=== PATIENT | male | born 1955 | race Caucasian/White ===

== ENCOUNTER → 2019-03-03 | Outpatient (REF) | payer OTHER ==
[2019-03-03 12:44] LABS: HEMATOCRIT 35.6 % (42.0-52.0); HEMOGLOBIN 11.6 g/dl (13.5-17.5); MEAN CORPUSCULAR HEMOGLOBIN 29.4 pg (27.0-33.0); MEAN CORPUSCULAR HGB CONC 32.6 g/dl (32.0-36.5); MEAN CORPUSCULAR VOLUME 90.1 fl (80.0-96.0); PLATELET COUNT, AUTOMATED 347 10^3/uL (150-450); RED BLOOD COUNT 3.95 10^6/uL (4.30-6.10); WHITE BLOOD COUNT 10.5 10^3/uL (4.0-10.0)
[2019-03-03 13:15] LABS: CALCIUM LEVEL 8.3 MG/DL (8.8-10.2); CREATININE FOR GFR 1.82 MG/DL (0.70-1.30); POTASSIUM SERUM 4.8 MEQ/L (3.5-5.1)
== END ==
LOC: M SHH 11:24
DX: A41.50 Gram-negative sepsis, unspecified (principal)

== ENCOUNTER → 2019-03-08 | Outpatient (REF) | payer OTHER ==
[2019-03-08 13:38] LABS: CALCIUM LEVEL 8.4 MG/DL (8.8-10.2); CREATININE FOR GFR 1.91 MG/DL (0.70-1.30); GLOMERULAR FILTRATION RATE 37.8 (>49)
[2019-03-08 13:47] LABS: HEMATOCRIT 32.7 % (42.0-52.0); HEMOGLOBIN 10.6 g/dl (13.5-17.5); MEAN CORPUSCULAR HEMOGLOBIN 28.5 pg (27.0-33.0); MEAN CORPUSCULAR HGB CONC 32.4 g/dl (32.0-36.5); MEAN CORPUSCULAR VOLUME 87.9 fl (80.0-96.0); PLATELET COUNT, AUTOMATED 282 10^3/uL (150-450); RED BLOOD COUNT 3.72 10^6/uL (4.30-6.10); WHITE BLOOD COUNT 6.6 10^3/uL (4.0-10.0)
== END ==
LOC: M SHH 12:24
DX: A41.50 Gram-negative sepsis, unspecified (principal)

== ENCOUNTER → 2020-12-06 | Outpatient (CLI) | payer OTHER, MEDICARE ==
[~2020-12-06] MED LIST: FLOM0.4C39 PO; OXYB5TAB10 PO; VALA1TAB5 PO
== END ==
LOC: M LABSMTC 10:30
PROVIDERS: ATTEND Anesthesiology
DX: Z01.812 Encounter for preprocedural laboratory examination (principal); Z20.822 Contact with and (suspected) exposure to COVID-19

== ENCOUNTER 2020-12-11 11:16 | Day surgery (SDC) | payer OTHER, MEDICARE ==
[~2020-12-11] VITALS: Ht 182.9 cm; Wt 81.1 kg
[~2020-12-11 11:16] MED LIST changes: +LIDOCAINE 1% MDV 20ML VIAL SQ PRN; +LR 1,000 ML IV SCH; +ceFAZolin SOD 2 GM in IV 1 EA IV ONE
[2020-12-11] MEDS ORDERED: LIDOCAINE 2% 100MG/5ML SDV (FOR ANES.) As Ordered ONE (14:31)
[2020-12-11] MEDS ORDERED: dexameTHASONE 4 MG/ML 1ML VIAL (J1100 PER 1MG) As Ordered ONE (14:31)
[2020-12-11] MEDS ORDERED: ONDANSETRON 4MG/2ML VIAL As Ordered ONE (14:31)
[2020-12-11] MEDS ORDERED: propofoL 200 MG/20 ML VIAL As Ordered ONE ×3 (15:10→16:42)
[2020-12-11] MEDS ORDERED: ROCURONIUM BROMIDE 50 MG/5 ML VIAL As Ordered ONE ×2 (15:10→16:42)
[2020-12-11] MEDS ORDERED: fentaNYL 100 MCG/2 ML INJECTION (J3010) As Ordered ONE ×2 (15:11→16:40)
[2020-12-11] MEDS ORDERED: MIDAZOLAM INJ 2MG/2ML VIAL (J2250 PER 1MG) As Ordered ONE (15:12)
[2020-12-11] MEDS ORDERED: ACETAMINOPHEN 1000MG 100ML IV BTL (OFIRMEV) (J0131 PER 10MG) As Ordered ONE (15:48)
[2020-12-11] MEDS ORDERED: FUROSEMIDE 100MG/10ML VIAL (J1940) As Ordered ONE (16:54)
[2020-12-11] MEDS ORDERED: SUGAMMADEX SODIUM 500 MG/5 ML VIAL (BRIDION) As Ordered ONE (17:06)
--- NOTE | 2020-12-11 17:32 | ROOPDOC ---
[facility] Report Of Operation Report of Operation DATE OF PROCEDURE: 12/11/20 PREPROCEDURE DIAGNOSIS: Benign prostatic hyperplasia, bladder stone. POSTPROCEDURE DIAGNOSIS: Benign prostatic hyperplasia, bladder stone. PROCEDURE: Cystoscopy, button transurethral electrovaporization of the prostate, removal of bladder stone. SURGEON: Yamilka Post MD LEATHER GRAINER: None. ANESTHESIA: General. OPERATIVE INDICATIONS: This is a 65-year-old male with benign prostatic hyperplasia and urinary retention, as well as a small bladder stone, who was brought to the operating room today for treatment. DESCRIPTION OF PROCEDURE: The patient was brought to the operating room and general anesthesia was induced. Prophylactic antibiotics were infused. He was placed in the dorsal lithotomy position and prepped and draped in the usual sterile fashion. At this point, I advanced the resectoscope into the urethra and into the bladder using the visual obturator. Of note, the patient had trilobar benign prostatic hyperplasia. There was an 8mm stone at the base of the bladder. This was drained out of the bladder through the scope. I made note of the location of both ureteral orifices, as well as the verumontanum. At this point, I began vaporizing hyperplastic tissue on the median lobe and then circumferentially at the bladder neck. I then vaporized hyperplastic tissue on both lateral lobes. I kept doing this until there was a clear channel established. Once there was a clear channel established, hemostasis was obtained using the coagulation current. Once satisfied with hemostasis, the resectoscope was removed and an 18-[place] Rojas catheter was inserted into the bladder. The balloon was filled with 15 mL of sterile water and then the catheter was connected to gravity drainage. This marked the conclusion of the procedure. The patient was taken out of the dorsal lithotomy position, awakened from anesthesia and transported to the recovery room in stable condition. Estimated blood loss: 15 mL. Complications: None. Specimens: None. PLAN: The patient will followup in the clinic in approximately 1 week for catheter removal and a voiding trial. YAMILKA POST MD Dec 11, 2020 17:32
[2020-12-11] MEDS ORDERED: CIPR-249 PO (17:37)
[2020-12-11] MEDS ORDERED: fentaNYL 100 MCG/2 ML INJECTION (J3010) IV PRN (17:45)
[2020-12-11] MEDS ORDERED: ONDANSETRON 4MG/2ML VIAL IV PRN (17:45)
[2020-12-11] MEDS ORDERED: oxyCODONE 5MG TAB PO PRN (17:45)
[2020-12-11] MEDS ORDERED: LR 1,000 ML IV SCH (17:45)
[2020-12-11] MEDS ORDERED: ACETAMINOPHEN TAB 650MG DOSE (2X325MG) PO PRN (17:50)
[2020-12-11 18:10] VITALS: BP 142/81
== END 2020-12-11 18:34 | disposition home or self-care (01) ==
LOC: M SDC 11:16
PROVIDERS: ATTEND Urology
DX: N40.1 Benign prostatic hyperplasia with lower urinary tract symptoms (principal); N21.0 Calculus in bladder; Z79.899 Other long term (current) drug therapy
CPT/HCPCS: 52601; 82365; 88300; C1769; J0131; J0690; J1100; J1940; J2250; J2405; J3010

== ENCOUNTER → 2021-04-20 | Outpatient (REF) | payer OTHER, MEDICARE ==
[~2021-04-20] MED LIST changes: +CIPR-249 PO; -LIDOCAINE 1% MDV 20ML VIAL SQ PRN; -LR 1,000 ML IV SCH; -ceFAZolin SOD 2 GM in IV 1 EA IV ONE
== END ==
LOC: M LAB REF 13:30
PROVIDERS: ATTEND Internal Medicine Nephrology
DX: Z87.442 Personal history of urinary calculi (principal)

== ENCOUNTER → 2021-10-23 | Outpatient (REF) | payer OTHER, MEDICARE | LOC: M LAB REF 17:36 | PROVIDERS: ATTEND Nurse Practitioner Family | DX: N18.31 Chronic kidney disease, stage 3a (principal) ==

== ENCOUNTER → 2022-04-22 | Outpatient (REF) | payer OTHER, MEDICARE | LOC: M LAB REF 17:11 | PROVIDERS: ATTEND Urology | DX: Z12.5 Encounter for screening for malignant neoplasm of prostate (principal) ==